=== PATIENT | male | born 1970 | race Caucasian/White ===

== ENCOUNTER 2018-08-03 06:33 | Day surgery (SDC) | payer OTHER ==
[2018-08-03] MEDS ORDERED: SEVOFLURANE 15 MIN (07:00)
[2018-08-03] MEDS ORDERED: CEFAZOLIN 1 GM INJ (07:00)
[2018-08-03] MEDS ORDERED: MIDAZOLAM 1 MG/ML 2 ML INJ (07:31)
[2018-08-03] MEDS ORDERED: LIDOCAINE 100 MG SYRINGE (07:31)
[2018-08-03] MEDS ORDERED: ROCURONIUM 50 MG INJ (07:31)
[2018-08-03] MEDS ORDERED: FENTAnyl 50 MCG/ML VIAL ×2 (07:31→08:35)
[2018-08-03] MEDS ORDERED: PROPOFOL 100 ML (07:31)
[2018-08-03] MEDS ORDERED: DEXAMETHASONE 4 MG/ML 5 ML INJ (07:32)
[2018-08-03] MEDS ORDERED: SUGAMMADEX SODIUM 200 MG/2 ML VIAL IV (07:32)
[2018-08-03] MEDS ORDERED: ONDANSETRON 4 MG INJ (07:32)
[2018-08-03] MEDS ORDERED: NEOMYC/POLYMYX/BACIT 30 GM OINT (07:39)
[2018-08-03] MEDS ORDERED: BUPIVACAINE 0.5% (SDV) 30 ML INJ (07:39)
[2018-08-03] MEDS ORDERED: FENTAnyl 50 MCG/ML VIAL IV ×2 (08:00)
[2018-08-03] MEDS ORDERED: MEPERIDINE 25 MG INJ IV (08:00)
[2018-08-03] MEDS ORDERED: HYDROmorphONE 1 MG/5 ML IV SYRINGE IV (08:00)
[2018-08-03] MEDS ORDERED: hydrALAzine 20 MG INJ IV (08:00)
[2018-08-03] MEDS ORDERED: ONDANSETRON 4 MG INJ IV (08:00)
[2018-08-03] MEDS ORDERED: METOCLOPRAMIDE 10 MG INJ IV (08:00)
[2018-08-03] MEDS ORDERED: LABETALOL HCL 20MG INJ IV (08:00)
[2018-08-03] MEDS ORDERED: PROVENTIL HFA 6.7GM INHALER (08:02)
[2018-08-03] MEDS ORDERED: CEFAZOLIN 1 GM/50 ML (PMX) 50 ML IVPB (09:00)
[2018-08-03] MEDS: BUPIVACAINE 0.5% 30 ML VIAL INJ ×2 (10:15)
[2018-08-03] MEDS: HYDROmorphONE 1 MG/5 ML IV SYRINGE IV ×3 (10:29→11:50)
== END 2018-08-03 12:23 | disposition home or self-care (01) ==
LOC: SDS 06:33
DX: N45.1 Epididymitis (principal); E78.5 Hyperlipidemia, unspecified; G40.909 Epilepsy, unspecified, not intractable, without status epilepticus; I10 Essential (primary) hypertension; F17.210 Nicotine dependence, cigarettes, uncomplicated; Z86.73 Personal history of transient ischemic attack (TIA), and cerebral infarction without residual deficits; Z79.82 Long term (current) use of aspirin
CPT/HCPCS: 54861; 88302